=== PATIENT | male | born 1960 | race Caucasian/White ===

== ENCOUNTER 2017-01-05 09:34 | Inpatient (IN) | payer OTHER ==
[~2017-01-05] VITALS: Ht 180.3 cm; Wt 59.0 kg
[~2017-01-05 09:34] MED LIST: COMBIVIR1 TAB PO; DILANTIN100 MG PO; KEPPRA100 MG/M1 PO; KEPPRA1000 M1 PO; LAC PO; LAMIVUDINE PO; LEV500 PO; LEVAQUIN750 MG PO; PHENYTOIN100 M1 PO; SUSTIVA50 MG PO; SUSTIVA600 MG PO; [UNRECOGNIZED DRUG - OTHER] PO
[2017-01-05 10:30] LABS: PLATELET COUNT 234 x10^3mcL (130-400)
[2017-01-05 10:31] LABS: RED CELL DISTRIBUTION WIDTH 14.8 % (11.5-14.5)
[2017-01-05 11:03] LABS: CK-MB 1.9 ng/mL (0-3.6)
[2017-01-05 11:19] LABS: BILIRUBIN TOTAL 0.4 mg/dL (0.20-1.00); CALCIUM 8.1 mg/dL (8.5-10.1); CARBON DIOXIDE 22.6 mmol/L (21-32); POTASSIUM SERUM 4.9 mmol/L (3.5-5.1)
[2017-01-05 11:21] LABS: ALBUMIN 2.4 g/dL (3.4-5.0); CREATININE SERUM 4.2 mg/dL (0.7-1.3)
[2017-01-05 11:24] LABS: BAND NEUTROPHIL 24 % (0-10); BASOPHIL 0 % (0-2); METAMYELOCTE 2 % (0-2); MONOCYTE 1 % (0-7); SEGMENTED NEUTROPHILS 64 % (37-75)
[2017-01-05 11:26] LABS: PLATELET MORPHOLOGY PLATELETS NORMAL; ovalocyte/elliptocyte 1+; rbc morphology (normal/abnorm) ABNORMAL (NORMAL)
[2017-01-05 11:46] LABS: UA SPECIFIC GRAVITY 1.015 (1.005-1.035); microscopic required? YES; urine erythrocyte 3+ (NEGATIVE)
[2017-01-05 13:25] VITALS: BP 82/41
[2017-01-05 13:50] LABS: PHOSPHOROUS 3.1 mg/dL (2.5-4.9)
[2017-01-05 14:00] LABS: FREE T4 0.79 ng/dL (0.76-1.46); FREE THYROXINE INDEX 1.6 ug/dL (1.4-4.5); T4(THYROXINE) 4.9 ug/dL (4.7-13.3)
[2017-01-05 14:41] LABS: T3 TOTAL 0.38 ng/mL
[2017-01-05 17:32] VITALS: BP 123/60
[2017-01-05 19:38] LABS: AMPHETAMINE QUAL UR NONE DETECTED (NEG <=1000)
[2017-01-05 21:24] VITALS: BP 96/63
[2017-01-06 06:15] VITALS: BP 114/63
[2017-01-06 06:16] LABS: PLATELET COUNT 157 x10^3mcL (130-400)
[2017-01-06 06:41] LABS: CALCIUM 7.3 mg/dL (8.5-10.1); CREATININE SERUM 3.8 mg/dL (0.7-1.3); MAGNESIUM 1.5 mg/dL (1.8-2.4); PHOSPHOROUS 3.5 mg/dL (2.5-4.9); POTASSIUM SERUM 3.9 mmol/L (3.5-5.1)
[2017-01-06 06:45] LABS: RED CELL DISTRIBUTION WIDTH 15.2 % (11.5-14.5)
[2017-01-06 08:09] VITALS: BP 95/48
[2017-01-06 10:37] LABS: BAND NEUTROPHIL 17 % (0-10); BASOPHIL 0 % (0-2); MONOCYTE 1 % (0-7); SEGMENTED NEUTROPHILS 76 % (37-75)
[2017-01-06 10:40] LABS: PLATELET MORPHOLOGY PLATELETS NORMAL; burr cell (echinocyte) 1+; rbc morphology (normal/abnorm) ABNORMAL (NORMAL)
[2017-01-06 10:41] LABS: acanthocyte (spur cell) 1+; schistocyte (helmet cell) 1+
[2017-01-06 14:22] VITALS: BP 130/77
[2017-01-06 17:41] VITALS: BP 122/79
[2017-01-06 22:32] VITALS: BP 124/68
[2017-01-07 06:45] LABS: CALCIUM 7.5 mg/dL (8.5-10.1); CARBON DIOXIDE 17.1 mmol/L (21-32); CREATININE SERUM 3.3 mg/dL (0.7-1.3); MAGNESIUM 2.1 mg/dL (1.8-2.4); PHOSPHOROUS 2.6 mg/dL (2.5-4.9); POTASSIUM SERUM 3.8 mmol/L (3.5-5.1)
[2017-01-07 06:58] VITALS: BP 122/68
[2017-01-07 07:14] LABS: PLATELET COUNT 140 x10^3mcL (130-400)
[2017-01-07 07:17] LABS: RED CELL DISTRIBUTION WIDTH 15.2 % (11.5-14.5)
[2017-01-07 08:15] VITALS: BP 97/61
[2017-01-07 08:49] LABS: MONOCYTE 1 % (0-7); SEGMENTED NEUTROPHILS 90 % (37-75); rbc morphology (normal/abnorm) ABNORMAL (NORMAL)
[2017-01-07 18:11] VITALS: BP 117/75
[2017-01-07 21:01] VITALS: BP 120/68
[2017-01-08 05:31] VITALS: BP 128/76
[2017-01-08 06:40] LABS: CALCIUM 7.9 mg/dL (8.5-10.1); CARBON DIOXIDE 18.4 mmol/L (21-32); CREATININE SERUM 2.7 mg/dL (0.7-1.3); MAGNESIUM 1.8 mg/dL (1.8-2.4); PHOSPHOROUS 3.5 mg/dL (2.5-4.9); POTASSIUM SERUM 3.9 mmol/L (3.5-5.1)
[2017-01-08 06:54] LABS: PLATELET COUNT 114 x10^3mcL (130-400); RED CELL DISTRIBUTION WIDTH 15.8 % (11.5-14.5)
[2017-01-08 08:22] LABS: BAND NEUTROPHIL 0 % (0-10); BASOPHIL 0 % (0-2); MONOCYTE 3 % (0-7); SEGMENTED NEUTROPHILS 82 % (37-75)
[2017-01-08 08:24] LABS: PLATELET MORPHOLOGY PLATELETS NORMAL; rbc morphology (normal/abnorm) ABNORMAL (NORMAL)
[2017-01-08 08:25] LABS: acanthocyte (spur cell) 1+; burr cell (echinocyte) 1+
[2017-01-08] MEDS ORDERED: LAC PO (10:01)
[2017-01-08] MEDS ORDERED: BACTRIM DS1 TAB PO (10:09)
[2017-01-08] MEDS ORDERED: FLO4 PO (10:10)
[2017-01-08 10:18] VITALS: BP 115/72
[2017-01-08] MEDS ORDERED: BACTRIM1 TAB PO (11:24)
[2017-01-08 13:37] VITALS: BP 115/72
[2017-01-08 15:19] VITALS: BP 107/73
== END 2017-01-08 16:40 | disposition home or self-care (01) | DRG 720 ==
LOC: ED 09:34 → DU 12:18 → MU 01-07 08:13
PROVIDERS: Emergency Medicine; ADMIT Family Medicine
DX: A41.51 Sepsis due to Escherichia coli [E. coli] (principal); N17.0 Acute kidney failure with tubular necrosis; E43 Unspecified severe protein-calorie malnutrition; N10 Acute pyelonephritis; B96.20 Unspecified Escherichia coli [E. coli] as the cause of diseases classified elsewhere; R65.20 Severe sepsis without septic shock; N13.2 Hydronephrosis with renal and ureteral calculous obstruction; E87.1 Hypo-osmolality and hyponatremia; D18.09 Hemangioma of other sites; F02.80 Dementia in other diseases classified elsewhere, unspecified severity, without behavioral disturbance, psychotic disturbance, mood disturbance, and anxiety; G40.909 Epilepsy, unspecified, not intractable, without status epilepticus; E78.5 Hyperlipidemia, unspecified; Z87.891 Personal history of nicotine dependence; Z66 Do not resuscitate
CPT/HCPCS: 83880; 84439; 97110-GP; 97530-GP; J0696; J1956; J2060; J3475; J7030; J7040; J7120; Q0092

== ENCOUNTER 2017-01-12 18:13 | Emergency (ER) | payer OTHER ==
[~2017-01-12 18:13] MED LIST changes: +BACTRIM DS1 TAB PO; +BACTRIM1 TAB PO; +FLO4 PO
[2017-01-12 18:41] LABS: BASOPHIL % 0.7 % (0-2); PLATELET COUNT 195 x10^3mcL (130-400); RED CELL DISTRIBUTION WIDTH 14.3 % (11.5-14.5)
[2017-01-12 18:56] LABS: CALCIUM 8.2 mg/dL (8.5-10.1); CARBON DIOXIDE 19.6 mmol/L (21-32); CREATININE SERUM 2.3 mg/dL (0.7-1.3); POTASSIUM SERUM 3.9 mmol/L (3.5-5.1)
[2017-01-12 19:01] LABS: BILIRUBIN TOTAL 0.2 mg/dL (0.20-1.00); CK-MB 1.1 ng/mL (0-3.6); TOTAL PROTEIN, SERUM 6.7 g/dL (6.4-8.2)
[2017-01-12 19:02] LABS: UA SPECIFIC GRAVITY 1.015 (1.005-1.035); microscopic required? YES; urine erythrocyte 3+ (NEGATIVE)
[2017-01-12 19:12] LABS: ALBUMIN 2.2 g/dL (3.4-5.0)
[2017-01-12 22:15] VITALS: BP 107/70
== END 2017-01-12 22:10 | disposition home or self-care (01) ==
LOC: ED 18:13
PROVIDERS: Emergency Medicine
DX: R10.9 Unspecified abdominal pain (principal); F03.90 Unspecified dementia, unspecified severity, without behavioral disturbance, psychotic disturbance, mood disturbance, and anxiety; Z88.0 Allergy status to penicillin; Z79.899 Other long term (current) drug therapy
CPT/HCPCS: 36415; 83880; Q0092